=== PATIENT | male | born 1970 | race Caucasian/White ===

== ENCOUNTER 2022-04-11 13:35 | Emergency (ER) | payer SELFPAY ==
[2022-04-11 13:43] VITALS: BP 137/82; PULSE 102; RESP 18; TEMP 36.9; O2SAT 96; BMI 26.5
[2022-04-11] MEDS: IBUPROFEN 200 MG TABLET 600 MG PO (14:49)
[2022-04-11] MEDS: HYDROmorphone 0.5 mg/0.5 ml inj 1 MG IM (14:49)
--- NOTE | 2022-04-16 04:36 | ED.GENADULT ---
HPI - General Adult General Chief complaint: Back Injury/Pain Stated complaint: Back Pain Down Leg Time Seen by Provider: 04/11/22 14:02 History of Present Illness HPI narrative: 51-year-old man presenting to the emergency department after flare of deep aching pain upon lifting a heavy box last week while in [place]. Radiating down his right buttock and down his right leg all the way to his toes. No blunt trauma. Has been trying some [id number] medication without relief. Hard to sleep due to discomfort. No dysuria. No loss of bowel bladder control. Related Data Allergies Allergy/AdvReac Type Severity Reaction Status Date / Time No Known Drug Allergies Allergy Verified 04/11/22 13:46 Review of Systems Status of ROS: Reports: 6 or more systems reviewed and unremarkable except as noted in History and below PFSH PFS Social History Smoking Status: Smoker, status unknown Do you use any of these nicotine containing products: None Second hand tobacco smoke exposure: No How often do you have a drink containing alcohol: never AUDIT-C Alcohol total score: 0 Non-prescribed substance use: denies use Exam Narrative: Exam Narrative: Clearly uncomfortable and restless in this discomfort. Trying to be calm. Breathing easily. Skin is warm and dry without evidence of trauma. No erythema. No midline back tenderness. Is not demonstrating hypesthetic pain response. Vaguely reducible to palpation of the piriformis area in the right buttock. Positive straight leg raise. No clear weakness though strength somewhat diminished in leg/ankle I think due to pain. No loss of sensation. Const: Documenting provider has reviewed patient's vital signs: yes Course Vital Signs Vital signs: Initial Vital Signs Temperature 98.4 F 04/11/22 13:43 Temperature Source Temporal Artery Scan 04/11/22 13:43 Pulse Rate 102 H 04/11/22 13:43 Pulse Rhythm 04/11/22 13:43 Pulse Strength 3+ Normal 04/11/22 13:43 Respiratory Rate 18 04/11/22 13:43 Blood Pressure 137/82 04/11/22 13:43 Blood Pressure Mean 100 04/11/22 13:43 Blood Pressure Position Sitting 04/11/22 13:43 Pulse Oximetry 96 04/11/22 13:43 Oxygen Delivery Method 04/11/22 13:43 Vital Signs Temperature 98.4 F 04/11/22 13:43 Pulse Rate 102 H 04/11/22 13:43 Respiratory Rate 18 04/11/22 13:43 Blood Pressure 137/82 04/11/22 13:43 Pulse Oximetry 96 04/11/22 13:43 Oxygen Delivery Method 04/11/22 13:43 Temperature 98.4 F 04/11/22 13:43 Pulse Rate 102 H 04/11/22 13:43 Respiratory Rate 18 04/11/22 13:43 Blood Pressure 137/82 04/11/22 13:43 Pulse Oximetry 96 04/11/22 13:43 Oxygen Delivery Method 04/11/22 13:43 Medical Decision Making MDM Narrative Medical decision making narrative: due to degree of discomfort I think it be reasonable to try to break this pain here in the emergency department. Given injection of Dilaudid and oral ibuprofen. No red flags to this but presentation consistent with lumbar radicular pain possibly from slipped disc/disc herniation; beyond piriformis syndrome or typical sciatica. Improved after Dilaudid; suspect ibuprofen not fully to effect. Without trauma not sure of benefit of imaging that I have available here today at this time. See patient discharge plan Discharge Plan Discharge Clinical Impression: Lumbar radiculopathy Patient Disposition: Home w/ Parent or Adult Condition: Stable Additional Instructions: See handout for stretches for radicular low back pain. Can take up to 800 mg of ibuprofen per dose or or alternatively up to 500 mg of naproxen 2 times daily. With either of these you can take up to 1000 mg of acetaminophen per dose. Keep in mind that each tablet of Percocet contains 325 mg of acetaminophen. Percocet from [facility]. Also prednisone. Take the prednisone as 60 mg daily for 3 days then 40 mg daily for 4 days then 20 mg daily for 2 days Please call today or tomorrow to schedule follow-up in primary care either to continue with pain management in some form and/or next level imaging for better diagnosis. Stand Alone Forms: [employer] Info Instructions
== END 2022-04-11 14:56 | disposition home or self-care (01) ==
PROVIDERS: Emergency Provider Family Medicine
DX: M54.16 Radiculopathy, lumbar region (principal)
CPT/HCPCS: 96372; 99283; A9270; J1170